=== PATIENT | female | born 1985 | race African-American/Black ===

== ENCOUNTER → 2023-05-29 | Outpatient (CLI) | payer OTHER | END | disposition home or self-care (01) | LOC: LAB 08:36 → LAB SHORT 08:36 | PROVIDERS: Nurse Practitioner Family | DX: L68.0 Hirsutism (principal) | CPT/HCPCS: 84144 ==

== ENCOUNTER → 2023-06-29 | Outpatient (CLI) | payer OTHER | LOC: LAB SHORT 18:09 → LAB 18:09 | DX: N39.0 Urinary tract infection, site not specified (principal) | CPT/HCPCS: 87077; 87086; 87186 ==

== ENCOUNTER → 2023-10-10 | Outpatient (CLI) | payer OTHER | END | disposition home or self-care (01) | LOC: LAB SHORT 12:06 → LAB 12:06 | DX: E03.9 Hypothyroidism, unspecified (principal) | CPT/HCPCS: 84443 ==

== ENCOUNTER → 2024-04-11 | Outpatient (CLI) | payer OTHER | END | disposition home or self-care (01) | LOC: LAB 17:26 → LAB SHORT 17:26 | DX: N39.0 Urinary tract infection, site not specified (principal) | CPT/HCPCS: 87077; 87086; 87186 ==

== ENCOUNTER → 2024-08-11 | Outpatient (CLI) | payer BC, OTHER | END | disposition home or self-care (01) | LOC: LAB 17:05 → LAB SHORT 17:05 | DX: R10.9 Unspecified abdominal pain (principal) | CPT/HCPCS: 87077; 87086; 87186 ==

== ENCOUNTER 2024-12-03 08:11 | Emergency (ER) | payer BC, OTHER ==
[~2024-12-03] VITALS: Ht 167.6 cm; Wt 71.2 kg
[2024-12-03] MEDS ORDERED: Metoclopramide HCl 5MG / ML 2ML Vial IV ONE (08:40)
[2024-12-03] MEDS ORDERED: Ketorolac Tromethamine 30mg Vial IV ONE (08:40)
[2024-12-03] MEDS ORDERED: DiphenhydrAMINE HCl 50 MG/ML 1ML Vial IV ONE (08:45)
[2024-12-03] MEDS ORDERED: NS 1,000 ML IV SCH (08:45)
[2024-12-03] MEDS ORDERED: METFORMIN HCL500 M3 PO (09:04)
[2024-12-03] MEDS ORDERED: ATORVASTATIN CA20 MG PO (09:04)
[2024-12-03] MEDS ORDERED: OZEMPIC1 MG/0.72 SC (09:04)
[2024-12-03] MEDS ORDERED: KLOR-CON 1010 ME9 PO (09:05)
[2024-12-03] MEDS ORDERED: AMLODIPINE BESYL5 MG PO (09:05)
[2024-12-03] MEDS ORDERED: Droperidol 5 mg/2 ml Vial IV ONE (10:25)
[2024-12-03] MEDS ORDERED: Methyl Salicylate/Menth/Camph 57 GM TUBE TOP ONE (10:25)
[2024-12-03] MEDS ORDERED: Methocarbamol 500 MG Tab PO ONE (10:25)
[2024-12-03] MEDS ORDERED: Prochlorperazine Edisylate 10 mg Vial IV ONE (11:45)
[2024-12-03 12:06] VITALS: BP 122/91
[2024-12-03] MEDS ORDERED: METO10 PO (12:30)
== END 2024-12-03 12:30 | disposition home or self-care (01) ==
LOC: ER 08:11
DX: G43.909 Migraine, unspecified, not intractable, without status migrainosus (principal); I10 Essential (primary) hypertension
CPT/HCPCS: 96374; 96375; 99283-25; A9270; J0780; J1200; J1885; J2765; J7030

== ENCOUNTER → 2024-12-15 | Outpatient (CLI) | payer BC, OTHER ==
[~2024-12-15] MED LIST: AMLODIPINE BESYL5 MG PO; ATORVASTATIN CA20 MG PO; KLOR-CON 1010 ME9 PO; METFORMIN HCL500 M3 PO; METO10 PO; OZEMPIC1 MG/0.72 SC
== END ==
LOC: LAB 12:30 → LAB SHORT 12:30
DX: R30.0 Dysuria (principal)
CPT/HCPCS: 87077; 87086; 87186

== ENCOUNTER 2025-01-21 09:39 | Day surgery (SDC) | payer BC, OTHER ==
[~2025-01-21] VITALS: Ht 167.6 cm; Wt 70.8 kg
[2025-01-21] VITALS (17 sets, daily range): BP systolic 109–132; BP diastolic 55–98
[~2025-01-21 09:39] MED LIST changes: +CeFAZolin Sodium 2,000 MG in NS 100 ML IV SCH; +LEVSOD25 PO; +Lactated Ringer's 1,000 ML IV SCH; +METO50ER PO; +SUMA25 PO
[2025-01-21] MEDS ORDERED: FentaNYL Citrate 50 MCG/ML 2 ML Injection ONE (09:50)
[2025-01-21] MEDS ORDERED: propofoL 20 ML IV ONE (09:50)
[2025-01-21] MEDS ORDERED: Midazolam HCl 1MG / ML 2ML Vial ONE (09:50)
[2025-01-21] MEDS ORDERED: Rocuronium Bromide 10 MG/ML 5ML Injection IV ONE (09:52)
[2025-01-21] MEDS ORDERED: Bupivacaine 0.5% W/EPI 1:200000 SDV 30 ML Vial ONE (10:30)
--- NOTE | 2025-01-21 10:30 | NUR ---
AMBULATORY INTO SDS. PT A&OX4-DENIES PAIN OR SOB. HISTORY AND ALLERGIES REVIEWED. LUNGS CLEAR. NPO STATUS CONFIRMED. PT GLASSES TO PACU AND CLOTHING WITH PT SPOUSE FRACISCO.
[2025-01-21] MEDS ORDERED: SUMAtriptan Succinate 25 MG Tab PO PRN (11:10)
[2025-01-21] MEDS ORDERED: Ketorolac Tromethamine 30mg Vial ONE (11:53)
[2025-01-21] MEDS ORDERED: Phenylephrine HCl 100 MCG/ML-NS 10MLSYR (1MG/10ML) ONE (12:34)
[2025-01-21] MEDS ORDERED: Sugammadex Sodium 200 MG/2ML SDV (100 MG/ML) ONE (14:49)
[2025-01-21] MEDS ORDERED: FentaNYL Citrate 50 MCG/ML 2 ML Injection IV PRN ×2 (15:20→15:25)
[2025-01-21] MEDS ORDERED: HYDROmorphone HCl/Pf 1MG SYR IV PRN ×3 (15:20→16:00)
[2025-01-21] MEDS ORDERED: Ondansetron HCl 2 MG / ML 2ML Vial IV PRN ×2 (15:25→16:05)
[2025-01-21] MEDS ORDERED: Labetalol HCL 5 MG/ML 4ML Injection (Single Dose) IV PRN (15:25)
[2025-01-21] MEDS ORDERED: HYDROmorphone HCl/Pf 1MG SYR ONE (15:33)
[2025-01-21] MEDS ORDERED: Ondansetron 4 MG TAB PO PRN (16:00)
[2025-01-21] MEDS ORDERED: Promethazine HCl 25 MG Tab PO PRN (16:00)
[2025-01-21] MEDS ORDERED: OxyCODONE 5 mg/Acetamin 325 mg TABLET PO PRN (16:00)
[2025-01-21] MEDS ORDERED: Naloxone HCl 0.4MG / ML 1ML Vial IV PRN (16:05)
[2025-01-21] MEDS ORDERED: Simethicone 80 MG Chew PO PRN (16:05)
[2025-01-21] MEDS ORDERED: Promethazine HCl 12.5 MG Supp PR PRN (16:05)
[2025-01-21] MEDS ORDERED: Lactated Ringer's 1,000 ML IV SCH (16:05)
[2025-01-21] MEDS ORDERED: Ketorolac Tromethamine 30mg Vial IV PRN (16:10)
[2025-01-21] MEDS ORDERED: CeFAZolin Sodium 2,000 MG in NS 100 ML IV SCH (18:00)
--- NOTE | 2025-01-21 19:27 | NUR ---
POST OP: REPORT RECEIVED FROM RN DELIVERY. PT TO UNIT AT 1612. A/O, VSS. SURGICAL SITES WNL. PT REPORTS MINIMAL PAIN. INSTRUCTED TO USE CALL LIGHT FOR 1ST TIME OOB. PT SPOUSE AT BEDSIDE
--- NOTE | 2025-01-21 19:28 | NUR ---
SUMMARY: NO ACUTE CHANGE SINCE POST OP. PAIN IS MANAGED, NO N/V. PT HAS AMBULATED BUT HAS NOT BEEN ABLE TO VOID YET, NOC RN MADE AWARE. PT IS DRINKING PO FLUIDS. NO ACUTE SAFETY CONCERNS.
[2025-01-22 00:18] VITALS: BP 128/87
--- NOTE | 2025-01-22 03:59 | NUR ---
SHIFT SUMMARY POD 1 S/P ROBOTIC LAVH. ABD INCISIONS CDI, NO DRAINAGE OR REDNESS NOTED. A/OX4 WITH VSS. IS VOIDING. IND IN ROOM AND TO BATHROOM. CHERI PO, DENIES N/V. MEDICATED 2X T/O SHIFT FOR PAIN WITH PERCOCET 5MG, APPEARS TO MANAGE DISCOMFORT WELL. REPORTS BEING ABLE TO SLEEP SOME COMFORTABLY DURING NIGHT. IVF AND ABX INFUSING PER ORDERS. PT RESTING WITH CALL LIGHT IN REACH AND S/O AT BEDSIDE. PLAN FOR D/C HOME TODAY. WILL GIVE REPORT TO ONCOMING RN.
[2025-01-22 05:30] VITALS: BP 125/91
[2025-01-22] MEDS ORDERED: Levothyroxine Sodium 0.025 MG Tab PO SCH (06:00)
[2025-01-22 06:42] LABS: BASOPHILS ABSOLUTE AUTO 0.02 K/mm3 (0.00-0.23); BASOPHILS PERCENT AUTO 0 % (0-2); EOSINOPHILS ABSOLUTE AUTO 0.01 K/mm3 (0.00-0.68); EOSINOPHILS PERCENT AUTO 0 % (0-6); Hematocrit 36.3 % (33.0-51.0); Hemoglobin 12.3 g/dL (11.5-16.0); IMMATURE GRAN ABSOLUTE AUTO 0.05 K/mm3 (0.00-0.10); IMMATURE GRAN PERCENT AUTO 0 % (0-1); LYMPHOCYTES ABSOLUTE AUTO 1.92 K/mm3 (0.84-5.20); LYMPHOCYTES PERCENT AUTO 16 % (21-46); MONOCYTES ABSOLUTE AUTO 0.98 K/mm3 (0.16-1.47); MONOCYTES PERCENT AUTO 8 % (4-13); Mean Corpuscular HGB 29.7 pg (26.0-34.0); Mean Corpuscular HGB Conc 33.9 g/dL (31.5-36.5); Mean Corpuscular Volume 88 fL (80-100); Mean Platelet Volume 10.9 fL (9.1-12.4); NEUTROPHILS ABSOLUTE AUTO 9.29 K/mm3 (1.96-9.15); NEUTROPHILS PERCENT AUTO 76 % (41-73); Platelet Count 206 K/mm3 (150-400); RDW Coefficient Variation 12.3 % (11.7-14.2); RDW Standard Deviation 39.7 fL (35.1-46.3); Red Blood Cell Count 4.14 M/mm3 (3.80-5.20); White Blood Cell Count 12.27 K/mm3 (4.00-11.30)
[2025-01-22 07:37] VITALS: BP 128/89
[2025-01-22] MEDS ORDERED: Potassium Chloride 10 Meq Tablet SA PO SCH (09:00)
[2025-01-22] MEDS ORDERED: Atorvastatin 10 MG Tab PO SCH (09:00)
[2025-01-22] MEDS ORDERED: Metoprolol Succinate 50 MG TABCR PO SCH (09:00)
[2025-01-22] MEDS ORDERED: AmLODIPine Besylate 5 MG Tab PO SCH (09:00)
--- NOTE | 2025-01-22 09:35 | NUR ---
ASSESSMENT PT REPORTS FEELING WELL. DECLINES PAIN MEDICATIONS AT THIS TIME. ABD BINDER IN PLACE FOR COMFORT. CHERI REG DIET AND REPORTS FLATUS. INDEPENDENTLY AMBULATING HALLWAY. VOIDING WITHOUT DIFFICULTY. REPORTS SCANT TO NO VAGINAL BLEEDING. LAP SITES X5 WITH WOUND GLUE TO ABD ARE CDI. PT EXPECTING TO DISCHARGE HOME TODAY. CALL LIGHT WITHIN REACH. SIG OTHER AT BEDSIDE FOR SUPPORT.
[2025-01-22] MEDS ORDERED: Percocet 5-3251 EACH PO (11:05)
[2025-01-22] MEDS ORDERED: PROM25 PO (11:06)
[2025-01-22] MEDS ORDERED: SIME80CH PO (11:07)
--- NOTE | 2025-01-22 11:51 | NUR ---
DISCHARGE PT EDUCATED ON AND RECEIVED PRINTED DISCHARGE INSTRUCTIONS AND VERBALIZED AN UNDERSTANDING. PT FILLED RX PRIOR TO SURGERY. IV DC'D. PT GATHERED ALL PERSONAL BELONGINGS AND DISCHARGED HOME WITH AT SIDE. ESCORTED OUT VIA W/C.
== END 2025-01-22 11:24 | disposition home or self-care (01) ==
LOC: ORSCMMR 09:39 → ORD 11:30 → ORSCMMR 11:30 → SURS 15:53 → ORSCMMR 01-22 11:24
PROVIDERS: Obstetrics & Gynecology
PROC: 0U5F4ZZ Destruction of Cul-de-sac, Percutaneous Endoscopic Approach (ICD-10-PCS; principal; 2025-01-21 11:30)
PROC: 0UT7FZZ Resection of Bilateral Fallopian Tubes, Via Natural or Artificial Opening With Percutaneous Endoscopic Assistance (ICD-10-PCS; principal; 2025-01-21 11:30)
PROC: 0UT9FZZ Resection of Uterus, Via Natural or Artificial Opening With Percutaneous Endoscopic Assistance (ICD-10-PCS; principal; 2025-01-21 11:30)
DX: N92.1 Excessive and frequent menstruation with irregular cycle (principal); N94.6 Dysmenorrhea, unspecified; N99.85 Post endometrial ablation syndrome; N80.359 Endometriosis of pelvic sidewall, unspecified side, unspecified depth; N80.103 Endometriosis of bilateral ovaries, unspecified depth; I10 Essential (primary) hypertension; J45.909 Unspecified asthma, uncomplicated; E28.2 Polycystic ovarian syndrome; F43.10 Post-traumatic stress disorder, unspecified; F41.9 Anxiety disorder, unspecified
CPT/HCPCS: 36415; 84703; 85025; 86850; 86900; 86901; 88307; 94760; A9270; J0690; J1171; J1885; J2250; J2371; J2704; J3010; J7120